=== PATIENT | female | born 1965 | race Caucasian/White ===

== ENCOUNTER → 2016-05-26 | Outpatient (CLI) | payer BC, OTHER ==
[2016-05-26 16:03] LABS: ALANINE AMINOTRANSFERASE 77 U/L (9-52); ALBUMIN 3.9 g/dL (3.5-5.0); ALKALINE PHOSPHATASE 102 U/L (38-126); ANION GAP 11 (5-19); ASPARTATE AMINO TRANSFERASE 56 U/L (14-36); BILIRUBIN,TOTAL 0.7 mg/dL (0.2-1.3); BLOOD UREA NITROGEN 14 mg/dL (7-20); CARBON DIOXIDE 22 mmol/L (22-30); CHLORIDE 105 mmol/L (98-107); CREATININE RESULT 0.67 mg/dL (0.52-1.25); GLUCOSE 113 mg/dL (75-110); POTASSIUM 4.5 mmol/L (3.6-5.0); SODIUM 138.4 mmol/L (137-145); TOTAL PROTEIN 7.5 g/dL (6.3-8.2)
[2016-05-26 16:32] LABS: THYROID STIMULATING HORMONE 0.46 uIU/mL (0.47-4.68)
== END ==
LOC: OD 14:26
PROVIDERS: ATTEND Specialist
DX: Z13.0 Encounter for screening for diseases of the blood and blood-forming organs and certain disorders involving the immune mechanism (principal); Z13.1 Encounter for screening for diabetes mellitus; N81.6 Rectocele
CPT/HCPCS: 36415; 80053; 83036; 84439; 84443

== ENCOUNTER → 2016-06-22 | Outpatient (CLI) | payer BC, OTHER ==
[2016-06-22 12:33] LABS: ALANINE AMINOTRANSFERASE 59 U/L (9-52); ALKALINE PHOSPHATASE 96 U/L (38-126); ANION GAP 15 (5-19); ASPARTATE AMINO TRANSFERASE 47 U/L (14-36); BILIRUBIN,DIRECT 0.3 mg/dL (0.0-0.4); BILIRUBIN,TOTAL 0.6 mg/dL (0.2-1.3); BLOOD UREA NITROGEN 13 mg/dL (7-20); CALCIUM 9.6 mg/dL (8.4-10.2); CARBON DIOXIDE 22 mmol/L (22-30); CHLORIDE 106 mmol/L (98-107); CHOLESTEROL 202.58 mg/dL (0-200); CREATININE RESULT 0.69 mg/dL (0.52-1.25); Direct HDL 52 mg/dL (>40); GLUCOSE 109 mg/dL (75-110); POTASSIUM 4.7 mmol/L (3.6-5.0); SODIUM 143.1 mmol/L (137-145); TOTAL PROTEIN 6.9 g/dL (6.3-8.2); TRIGLYCERIDES 118 mg/dL (<150)
[2016-06-22 12:45] LABS: DIRECT LDL 133 mg/dL (<100)
== END ==
LOC: OD 10:48
PROVIDERS: ATTEND Physician Assistant
DX: R94.5 Abnormal results of liver function studies (principal); E78.5 Hyperlipidemia, unspecified
CPT/HCPCS: 36415; 80053; 80061

== ENCOUNTER → 2016-10-24 | Outpatient (CLI) | payer BC, OTHER ==
[2016-10-24 13:19] LABS: ALANINE AMINOTRANSFERASE 70 U/L (9-52); ALBUMIN 4.3 g/dL (3.5-5.0); ALKALINE PHOSPHATASE 92 U/L (38-126); ANION GAP 13 (5-19); ASPARTATE AMINO TRANSFERASE 49 U/L (14-36); BILIRUBIN,DIRECT 0.5 mg/dL (0.0-0.4); BILIRUBIN,TOTAL 0.8 mg/dL (0.2-1.3); BLOOD UREA NITROGEN 15 mg/dL (7-20); CALCIUM 9.6 mg/dL (8.4-10.2); CARBON DIOXIDE 21 mmol/L (22-30); CHLORIDE 108 mmol/L (98-107); CHOLESTEROL 200.06 mg/dL (0-200); CREATININE RESULT 0.66 mg/dL (0.52-1.25); Direct HDL 54 mg/dL (>40); GLUCOSE 112 mg/dL (75-110); POTASSIUM 4.8 mmol/L (3.6-5.0); TOTAL PROTEIN 7.3 g/dL (6.3-8.2); TRIGLYCERIDES 130 mg/dL (<150)
[2016-10-24 13:30] LABS: DIRECT LDL 129 mg/dL (<100)
== END ==
LOC: LAB 12:44
PROVIDERS: ATTEND Physician Assistant
DX: E78.5 Hyperlipidemia, unspecified (principal)
CPT/HCPCS: 36415; 80053; 80061

== ENCOUNTER → 2017-05-02 | Outpatient (CLI) | payer BC, OTHER ==
[2017-05-02 11:05] LABS: ALANINE AMINOTRANSFERASE 54 U/L (9-52); ALBUMIN 4.3 g/dL (3.5-5.0); ALKALINE PHOSPHATASE 71 U/L (38-126); ANION GAP 10 (5-19); ASPARTATE AMINO TRANSFERASE 41 U/L (14-36); BILIRUBIN,DIRECT 0.4 mg/dL (0.0-0.4); BILIRUBIN,TOTAL 0.5 mg/dL (0.2-1.3); BLOOD UREA NITROGEN 17 mg/dL (7-20); CALCIUM 9.9 mg/dL (8.4-10.2); CARBON DIOXIDE 25 mmol/L (22-30); CHLORIDE 107 mmol/L (98-107); CHOLESTEROL 212.38 mg/dL (0-200); GLUCOSE 100 mg/dL (75-110); POTASSIUM 4.4 mmol/L (3.6-5.0); SODIUM 142.3 mmol/L (137-145); TOTAL PROTEIN 7.1 g/dL (6.3-8.2); TRIGLYCERIDES 138 mg/dL (<150)
[2017-05-02 11:16] LABS: DIRECT LDL 144 mg/dL (<100)
== END ==
LOC: OD 09:38
PROVIDERS: ATTEND Physician Assistant
DX: E78.5 Hyperlipidemia, unspecified (principal)
CPT/HCPCS: 36415; 80053; 80061

== ENCOUNTER → 2017-06-03 | Outpatient (CLI) | payer BC, OTHER ==
[2017-06-03 13:11] LABS: FREE T4 (FREE THYROXINE) 0.84 ng/dL (0.78-2.19)
[2017-06-03 13:25] LABS: THYROID STIMULATING HORMONE 2.2 uIU/mL (0.47-4.68)
[2017-06-04 12:31] LABS: TRIIODOTHYRONINE (T3) 127 ng/dL (71-180)
== END ==
LOC: OD 10:44
PROVIDERS: ATTEND Physician Assistant
DX: E03.9 Hypothyroidism, unspecified (principal); E55.9 Vitamin D deficiency, unspecified
CPT/HCPCS: 36415; 82306; 84439; 84443; 84480

== ENCOUNTER → 2017-08-31 | Outpatient (CLI) | payer BC ==
[2017-08-31 13:16] LABS: FREE T4 (FREE THYROXINE) 0.98 ng/dL (0.78-2.19)
[2017-08-31 13:30] LABS: THYROID STIMULATING HORMONE 2.15 uIU/mL (0.47-4.68)
== END ==
LOC: OD 11:24
PROVIDERS: ATTEND Physician Assistant
DX: E03.9 Hypothyroidism, unspecified (principal); R73.02 Impaired glucose tolerance (oral)
CPT/HCPCS: 36415; 83036; 84439; 84443

== ENCOUNTER → 2018-01-03 | Outpatient (CLI) | payer OTHER ==
[2018-01-03 13:20] LABS: FREE T4 (FREE THYROXINE) 0.81 ng/dL (0.78-2.19)
[2018-01-03 13:33] LABS: THYROID STIMULATING HORMONE 2.2 uIU/mL (0.47-4.68)
== END ==
LOC: OD 11:24
PROVIDERS: ATTEND Physician Assistant
DX: E55.9 Vitamin D deficiency, unspecified (principal); E03.9 Hypothyroidism, unspecified
CPT/HCPCS: 36415; 82306; 84439; 84443; 84480

== ENCOUNTER → 2018-04-22 | Outpatient (CLI) | payer OTHER ==
[2018-04-22 11:31] LABS: ALANINE AMINOTRANSFERASE 72 U/L (9-52); ALBUMIN 4.4 g/dL (3.5-5.0); ALKALINE PHOSPHATASE 82 U/L (38-126); ANION GAP 9 (5-19); ASPARTATE AMINO TRANSFERASE 60 U/L (14-36); BILIRUBIN,DIRECT 0.2 mg/dL (0.0-0.4); BILIRUBIN,TOTAL 0.6 mg/dL (0.2-1.3); BLOOD UREA NITROGEN 15 mg/dL (7-20); CALCIUM 9.5 mg/dL (8.4-10.2); CARBON DIOXIDE 22 mmol/L (22-30); CHLORIDE 110 mmol/L (98-107); CHOLESTEROL 205.84 mg/dL (0-200); GLUCOSE 106 mg/dL (75-110); POTASSIUM 4.1 mmol/L (3.6-5.0); SODIUM 140.5 mmol/L (137-145); TRIGLYCERIDES 107 mg/dL (<150)
[2018-04-22 11:42] LABS: DIRECT LDL 130 mg/dL (<100)
[2018-04-22 11:45] LABS: FREE T4 (FREE THYROXINE) 0.64 ng/dL (0.78-2.19)
[2018-04-22 11:59] LABS: THYROID STIMULATING HORMONE 3.15 uIU/mL (0.47-4.68)
== END ==
LOC: OD 10:08
PROVIDERS: ATTEND Physician Assistant
DX: E03.9 Hypothyroidism, unspecified (principal); E78.5 Hyperlipidemia, unspecified
CPT/HCPCS: 36415; 80053; 80061; 84439; 84443; 84480

== ENCOUNTER → 2018-10-16 | Outpatient (CLI) | payer OTHER ==
[2018-10-16 18:22] LABS: FREE T4 (FREE THYROXINE) 0.7 ng/dL (0.78-2.19)
[2018-10-16 18:36] LABS: THYROID STIMULATING HORMONE 0.09 uIU/mL (0.47-4.68)
== END ==
LOC: OD 16:46
PROVIDERS: ATTEND Physician Assistant
DX: E03.9 Hypothyroidism, unspecified (principal)
CPT/HCPCS: 36415; 84439; 84443; 84480

== ENCOUNTER → 2018-12-21 | Outpatient (CLI) | payer OTHER ==
[2018-12-21 18:08] LABS: FREE T4 (FREE THYROXINE) 0.55 ng/dL (0.78-2.19)
[2018-12-21 18:22] LABS: THYROID STIMULATING HORMONE 0.6 uIU/mL (0.47-4.68)
== END ==
LOC: OD 16:08
PROVIDERS: ATTEND Physician Assistant
DX: E03.9 Hypothyroidism, unspecified (principal)
CPT/HCPCS: 36415; 84439; 84443

== ENCOUNTER → 2019-03-10 | Outpatient (CLI) | payer OTHER ==
[2019-03-10 11:42] LABS: ABSOLUTE BASOPHILS # (AUTO) 0.1 10^3/uL (0.0-0.2); ABSOLUTE EOSINOPHILS # (AUTO) 0.5 10^3/uL (0.0-0.6); ABSOLUTE LYMPHOCYTES (AUTO) 2.8 10^3/uL (0.5-4.7); ABSOLUTE MONOCYTES (AUTO) 0.8 10^3/uL (0.1-1.4); ABSOLUTE NEUT (AUTO) 5.4 10^3/uL (1.7-8.2); BASOPHILS % (AUTO) 0.9 % (0-2); HEMATOCRIT 47.5 % (36.0-47.0); HEMOGLOBIN 15.7 g/dL (12.0-15.5); LYMPHOCYTES % (AUTO) 29.5 % (13-45); MEAN CORPUSCULAR HEMOGLOBIN 26.9 pg (27.0-33.4); MEAN CORPUSCULAR HGB CONC 32.9 g/dL (32.0-36.0); MEAN CORPUSCULAR VOLUME 82 fl (80-97); MONOCYTES % (AUTO) 7.9 % (3-13); PLATELET COUNT 249 10^3/uL (150-450); RED BLOOD COUNT 5.82 10^6/uL (3.72-5.28); RED CELL DISTRIBUTION WIDTH 14.6 % (11.5-14.0); SEGMENTED NEUTROPHILS % (AUTO) 56.7 % (42-78); TOTAL CELLS COUNTED % (AUTO) 100 %; WHITE BLOOD COUNT 9.5 10^3/uL (4.0-10.5)
[2019-03-10 12:24] LABS: ALBUMIN 4.5 g/dL (3.5-5.0); ALKALINE PHOSPHATASE 81 U/L (38-126); ANION GAP 12 (5-19); ASPARTATE AMINO TRANSFERASE 96 U/L (14-36); BILIRUBIN,DIRECT 0.2 mg/dL (0.0-0.4); BILIRUBIN,TOTAL 0.7 mg/dL (0.2-1.3); BLOOD UREA NITROGEN 17 mg/dL (7-20); CARBON DIOXIDE 23 mmol/L (22-30); CHLORIDE 107 mmol/L (98-107); CHOLESTEROL 237.12 mg/dL (0-200); GLUCOSE 103 mg/dL (75-110); POTASSIUM 4.5 mmol/L (3.6-5.0); TOTAL PROTEIN 7.6 g/dL (6.3-8.2); TRIGLYCERIDES 136 mg/dL (<150)
[2019-03-10 12:34] LABS: FREE T4 (FREE THYROXINE) 0.59 ng/dL (0.78-2.19)
[2019-03-10 12:35] LABS: DIRECT LDL 151 mg/dL (<100)
[2019-03-10 12:43] LABS: BLOOD UREA NITROGEN 17 mg/dL (7-20); CHLORIDE 107 mmol/L (98-107); GLUCOSE 103 mg/dL (75-110); POTASSIUM 4.5 mmol/L (3.6-5.0)
[2019-03-10 12:44] LABS: ALBUMIN 4.5 g/dL (3.5-5.0); ALKALINE PHOSPHATASE 81 U/L (38-126); ANION GAP 12 (5-19); ASPARTATE AMINO TRANSFERASE 96 U/L (14-36); BILIRUBIN,DIRECT 0.2 mg/dL (0.0-0.4); BILIRUBIN,TOTAL 0.7 mg/dL (0.2-1.3); CARBON DIOXIDE 23 mmol/L (22-30)
[2019-03-10 12:45] LABS: TOTAL PROTEIN 7.6 g/dL (6.3-8.2)
[2019-03-10 12:48] LABS: THYROID STIMULATING HORMONE 0.54 uIU/mL (0.47-4.68)
[2019-03-12 12:36] LABS: HEPATITS B SURFACE ANTIGEN Negative (Negative)
[2019-03-12 14:25] LABS: HEPATITIS C VIRUS ANTIBODY <0.1 s/co ratio (0.0-0.9)
== END ==
LOC: OD 09:45
PROVIDERS: ATTEND Physician Assistant
DX: E55.9 Vitamin D deficiency, unspecified (principal); E78.5 Hyperlipidemia, unspecified; E03.9 Hypothyroidism, unspecified; R73.02 Impaired glucose tolerance (oral); K76.89 Other specified diseases of liver; R94.5 Abnormal results of liver function studies; Z79.899 Other long term (current) drug therapy
CPT/HCPCS: 36415; 80053; 80061; 80074; 82306; 83036; 84439; 84443; 84480; 85025; 87070

== ENCOUNTER 2019-05-04 17:00 | Emergency (ER) | payer OTHER ==
[2019-05-04] MEDS ORDERED: KETOROLAC TROMETHAMINE 60 MG/2 ML SDV IM ONE (17:41)
[2019-05-04] MEDS ORDERED: ONDANSETRON 4 MG TAB.RAPDIS PO ONE (17:41)
--- NOTE | 2019-05-04 17:47 | ER Document Report ---
ED Medical Screen (RME) - General Chief Complaint: Flank Pain Stated Complaint: URINARY PAIN, FLANK PAIN Time Seen by Provider: 05/04/19 17:32 Primary Care Provider: ALYSON PATE PA-C [Primary Care Provider] - Follow up as needed TRAVEL OUTSIDE OF THE [place] IN LAST 30 DAYS: No - HPI Notes: 05/04/19 17:46 53-year-old female with history of kidney stones to the emergency department with complaints of left flank pain that radiates down her abdomen and groin for the past several hours. She states that she has a history of kidney stones and this feels similar. She states that she had an episode like this last week but she got little bit better. She states in the last 2 hours of working today though pain came on full force with nausea. She has not vomited but she has be en very close to it. She states that she feels like her bladder hurts. She denies any dysuria or hematuria. She does not currently have a urologist. I performed a brief medical screening exam on the patient determined that she will need further evaluation by me inside provider. I placed initial orders to help expedite her care. - Related Data Allergies/Adverse Reactions: cephalexin monohydrate [From Keflex] Allergy (Verified 10/15/11 19:52) Past Medical History - Social History Frequency of alcohol use: Rare Drug Abuse: None Neurological Medical History: Reports: Hx Migraine Renal/ Medical History: Reports: Hx Kidney Stones Musculoskeltal Medical History: Reports Hx Musculoskeletal Deformity, Reports Hx Musculoskeletal Trauma Past Surgical History: Reports: Hx Hysterectomy, Hx Kidney (Renal Surgery) - stone removal - Immunizations Hx Diphtheria, Pertussis, Tetanus Vaccination: Yes Physical Exam - Vital signs Vitals: Temp Pulse Resp BP Pulse Ox 97.9 F 86 18 145/77 H 96 05/04/19 17:16 05/04/19 17:16 05/04/19 17:16 05/04/19 17:16 05/04/19 17:16 Course - Vital Signs Vital signs: Temp Pulse Resp BP Pulse Ox 97.9 F 86 18 145/77 H 96 05/04/19 17:16 05/04/19 17:16 05/04/19 17:16 05/04/19 17:16 05/04/19 17:16 Doctor's Discharge - Discharge Referrals: ALYSON PATE PA-C [Primary Care Provider] - Follow up as needed
--- NOTE | 2019-05-04 18:24 | RADIOLOGY REPORT (SQ) ---
EXAM DESCRIPTION: CT ABD/PELVIS NO ORAL OR IV COMPLETED DATE/TIME: 05/04/2019 6:05 pm REASON FOR STUDY: kidney stone eval COMPARISON: None. TECHNIQUE: CT scan of the abdomen and pelvis performed without intravenous or oral contrast. Images reviewed with lung, soft tissue, and bone windows. Reconstructed coronal and sagittal MPR images revi ewed. All images stored on PACS. All CT scanners at this facility use dose modulation, iterative reconstruction, and/or weight based d osing when appropriate to reduce radiation dose to as low as reasonably achievable (ALARA). [facility]: Dose Right [facility]: CareDose [facility]: Dose Right [facility]: Teradose 4D [facility]: Smart Clearwire RADIATION DOSE: CT Rad equipment meets quality standard of care and radiation dose reduction techniq ues were employed. CTDIvol: 19.2 mGy. DLP: 1026 mGy-cm.mGy. LIMITATIONS: None. FINDINGS: LOWER CHEST: No significant findings. No nodules or infiltrates. NON-CONTRASTED LIVER, SPLEEN, ADRENALS: Evaluation limited by lack of IV contrast. No identified sign ificant masses. PANCREAS: No masses. No peripancreatic inflammatory changes. GALLBLADDER: No identified stones by CT criteria. No inflammatory changes to suggest cholecystitis. RIGHT KIDNEY AND URETER: No suspicious masses. Assessment limited by lack of IV contrast. No signif icant calcifications. No hydronephrosis or hydroureter. LEFT KIDNEY AND URETER: No suspicious masses. Assessment limited by lack of IV contrast. Peripheral nephrolithiasis. 6 mm calculus at the UV junction. Mild hydronephrosis and hydroureter. AORTA AND RETROPERITONEUM: No aneurysm. No retroperitoneal masses or adenopathy. BOWEL AND PERITONEAL CAVITY: No obvious masses or inflammatory changes. No free fluid. Diverticulosi s. APPENDIX: Normal. PELVIS, BLADDER, AND ABDOMINAL WALL:No abnormal masses. No free fluid. Bladder normal. BONES: No significant findings. OTHER: No other significant finding. IMPRESSION: Left obstructive uropathy secondary to a 6 mm calcification at the UV junction. COMMENT: Quality ID # [id number]: Final reports with documentation of one or more dose reduction techniques (e.g., Automated exposure control, adjustment of the mA and/or kV according to patient size, use of iterative reconstruction technique) TECHNICAL DOCUMENTATION: JOB ID: [id number]- All Rights Reserved Reading location - IP/workstation name: [email or web address]
[2019-05-04 19:15] LABS: ABSOLUTE BASOPHILS # (AUTO) 0.1 10^3/uL (0.0-0.2); ABSOLUTE EOSINOPHILS # (AUTO) 0.4 10^3/uL (0.0-0.6); ABSOLUTE LYMPHOCYTES (AUTO) 3.2 10^3/uL (0.5-4.7); ABSOLUTE MONOCYTES (AUTO) 1.2 10^3/uL (0.1-1.4); ABSOLUTE NEUT (AUTO) 9.5 10^3/uL (1.7-8.2); BASOPHILS % (AUTO) 0.9 % (0-2); HEMOGLOBIN 15.5 g/dL (12.0-15.5); LYMPHOCYTES % (AUTO) 22.3 % (13-45); MEAN CORPUSCULAR HEMOGLOBIN 27.1 pg (27.0-33.4); MEAN CORPUSCULAR HGB CONC 32.9 g/dL (32.0-36.0); MEAN CORPUSCULAR VOLUME 82 fl (80-97); MONOCYTES % (AUTO) 8.2 % (3-13); PLATELET COUNT 294 10^3/uL (150-450); RED BLOOD COUNT 5.72 10^6/uL (3.72-5.28); RED CELL DISTRIBUTION WIDTH 14.3 % (11.5-14.0); SEGMENTED NEUTROPHILS % (AUTO) 65.6 % (42-78); TOTAL CELLS COUNTED % (AUTO) 100 %; WHITE BLOOD COUNT 14.5 10^3/uL (4.0-10.5)
[2019-05-04] MEDS ORDERED: KETOROLAC TROMETHAMINE INJ/PF 30 MG/1 ML SDV IV ONE (19:33)
[2019-05-04] MEDS ORDERED: MORPHINE SULFATE 10 MG/ML INJ IV ONE ×2 (19:34→21:50)
[2019-05-04 19:36] LABS: ALBUMIN 4.5 g/dL (3.5-5.0); ALKALINE PHOSPHATASE 81 U/L (38-126); ANION GAP 14 (5-19); APPEARANCE,URINE CLOUDY; ASPARTATE AMINO TRANSFERASE 65 U/L (14-36); BILIRUBIN,DIRECT 0.4 mg/dL (0.0-0.4); BILIRUBIN,TOTAL 0.7 mg/dL (0.2-1.3); BILIRUBIN,URINE NEGATIVE (NEGATIVE); BLOOD UREA NITROGEN 24 mg/dL (7-20); CALCIUM 10.2 mg/dL (8.4-10.2); CARBON DIOXIDE 24 mmol/L (22-30); CHLORIDE 101 mmol/L (98-107); COLOR,URINE YELLOW; GLUCOSE 88 mg/dL (75-110); GLUCOSE, URINE NEGATIVE (NEGATIVE); KETONES,URINE NEGATIVE (NEGATIVE); POTASSIUM 4.4 mmol/L (3.6-5.0); PROTEIN,URINE NEGATIVE (NEGATIVE); TOTAL PROTEIN 7.7 g/dL (6.3-8.2); URINE SPECIFIC GRAVITY 1.016; UROBILINOGEN,URINE NEGATIVE mg/dL (<2.0)
[2019-05-04] MEDS ORDERED: TAMSULOSIN HCL 0.4 MG CAP.SR.24H PO ONE (21:50)
[2019-05-04] MEDS ORDERED: NORMAL SALINE 1000 ML 1,000 ML IV ONE (21:50)
--- NOTE | 2019-05-04 23:47 | ER Document Report ---
ED General - General Chief Complaint: Flank Pain Stated Complaint: URINARY PAIN, FLANK PAIN Time Seen by Provider: 05/04/19 17:32 Primary Care Provider: LAKSHMI HDZ MD [CATA DOE] - Follow up in 1 week ALYSON PATE PA-C [NO LOCAL MD] - Follow up in 3-5 days NICHOLAS MONTE MD [NO LOCAL MD] - Follow up in 1 week Notes: 53-year-old female with history of kidney stones presents with left flank pain that started today with radiation to her left groin. Patient states it feels similar to her kidney stone pain in the past. Patient has had associated nausea and "pain in her bladder." Patient denies any fevers, vomiting, diarrhea, constipation, chest pain, shortness of breath, dysuria. TRAVEL OUTSIDE OF THE [place] IN LAST 30 DAYS: No - Related Data Allergies/Adverse Reactions: cephalexin monohydrate [From Keflex] Allergy (Verified 10/15/11 19:52) inderjit Allergy (Verified 05/04/19 20:21) papaya Allergy (Verified 05/04/19 20:21) Past Medical History - Social History Smoking Status: Never Smoker Frequency of alcohol use: Rare Drug Abuse: None Family History: Reviewed & Not Pertinent Patient has suicidal ideation: No Patient has homicidal ideation: No - Past Medical History Cardiac Medical History: Reports: Hx Hypercholesterolemia Pulmonary Medical History: Reports: Hx Asthma - allergies Neurological Medical History: Reports: Hx Migraine Renal/ Medical History: Reports: Hx Kidney Stones Musculoskeletal Medical History: Reports Hx Musculoskeletal Deformity, Reports Hx Musculoskeletal Trauma Past Surgical History: Reports: Hx Gynecologic Surgery, Hx Hysterectomy, Hx K idney (Renal Surgery) - stone removal, Hx Oral Surgery - wisdom teeth, Hx Tubal Ligation - Immunizations Hx Diphtheria, Pertussis, Tetanus Vaccination: Yes Review of Systems - Review of Systems Notes: Constitutional: Negative for fever. HENT: Negative for sore throat. Eyes: Negative for visual changes. Cardiovascular: Negative for chest pain. Respiratory: Negative for shortness of breath. Gastrointestinal: Positive for flank pain and nausea. Negative for abdominal pain, vomiting or diarrhea. Genitourinary: Negative for dysuria. Musculoskeletal: Negative for back pain. Skin: Negative for rash. Neurological: Negative for headaches, weakness or numbness. 10 point ROS negative except as marked above and in HPI. Physical Exam - Vital signs Vitals: Temp Pulse Resp BP Pulse Ox 97.9 F 86 18 145/77 H 96 05/04/19 17:16 05/04/19 17:16 05/04/19 17:16 05/04/19 17:16 05/04/19 17:16 - Notes Notes: GENERAL: Well-appearing, well-nourished and in no acute distress. HEAD: Atraumatic, normocephalic. EYES: Extraocular movements intact, sclera anicteric, conjunctiva are normal. NECK: Normal range of motion, supple without lymphadenopathy or JVD. ABDOMEN: Soft, nontender. No guarding, no rebound. No masses appreciated. No CVA tenderness. EXTREMITIES: Normal range of motion, no pitting or edema. No clubbing or cyanosis. NEUROLOGICAL: Cranial nerves II through XII grossly intact. Normal speech, normal gait. PSYCH: Normal mood, normal affect. SKIN: Warm, Dry, normal turgor, no rashes or lesions noted. Course - Re-evaluation Re-evalutation: 05/05/19 nontoxic, well-appearing 53-year-old female with history of kidney stones presents with left flank pain and nausea. Patient has a history of kidney stones and states this feels similar. Patient is afebrile. Non- tachycardic. Patient's white count is 14.5. Urine shows trace leukocytes with 19 WBCs and 73 RBCs with negative nitrite. CT scan shows a left stone approximately 6 mm at UVJ. Discussed with attending, Dr. Chaidez. Discussed results with pt and given report. Pt has elected to try outpatient management of ureteral stone. Strict return precautions given with pain control with sedation control. Pt voices understanding and agrees with plan of care. - Vital Signs Vital signs: Temp Pulse Resp BP Pulse Ox 97.8 F 69 18 111/59 L 95 05/05/19 00:19 05/05/19 00:19 05/04/19 22:09 05/05/19 00:19 05/05/19 00:19 - Laboratory Result Diagrams: 05/04/19 18:18 05/04/19 18:18 Laboratory results interpreted by me: 05/04/19 05/04/19 05/04/19 18:18 18:18 18:18 WBC 14.5 H RBC 5.72 H RDW 14.3 H Absolute Neuts (auto) 9.5 H BUN 24 H Est GFR (MDRD) Non-Af 55 L AST 65 H Urine Blood SMALL H Leukocyte Esterase Rfl TRACE H Urine Ascorbic Acid 40 H Discharge - Discharge Clinical Impression: Ureteral calculus, left Condition: Stable Disposition: HOME, SELF-CARE Instructions: Kidney Stone ([facility]) Additional Instructions: Please take medications as prescribed. Please do not drink or drive while taking [place] as it may make you drowsy. Please follow-up with urologist listed in 3 to 5 days. Please follow-up with your primary care doctor in 2 to 3 days. Return immediately to ER if you start having any worsening symptoms, including vomiting not controlled by medication, fever, inability to urinate, increased pain, increased pain or blood, abdominal pain, chest pain, shortness of breath, or any other symptoms that are concerning to you. Prescriptions: Ondansetron [Zofran Odt 4 mg Tablet] 4 mg PO Q4HP PRN #30 tab.rapdis PRN Reason: Hydrocodone/Acetaminophen [[place] 5-325 mg Tablet] 1 tab PO Q6HP PRN #15 tablet PRN Reason: Ketorolac Tromethamine [Toradol 10 mg Tablet] 10 mg PO Q6HP PRN #24 tablet PRN Reason: Tamsulosin HCl [Flomax 0.4 mg Cap.sr] 0.4 mg PO DAILY #10 cap.sr.24h Referrals: ALYSON PATE PA-C [NO LOCAL MD] - Follow up in 3-5 days LAKSHMI HDZ MD [CATA DOE] - Follow up in 1 week NICHOLAS MONTE MD [NO LOCAL MD] - Follow up in 1 week
[2019-05-04] MEDS ORDERED: HYDROCODONE/ACETAMINOPHEN 5-325 MG (6 TAB/ER DISP) PO PRN (23:52)
[2019-05-04] MEDS ORDERED: ONDANSETRON ODT 4 MG TAB (6 TAB/ER DISP) PO PRN (23:52)
[2019-05-05 00:21] VITALS: BP 111/59
== END 2019-05-05 00:23 | disposition home or self-care (01) ==
LOC: ER 17:00
DX: N13.2 Hydronephrosis with renal and ureteral calculous obstruction (principal); R11.0 Nausea; J45.909 Unspecified asthma, uncomplicated; Z88.1 Allergy status to other antibiotic agents; Z91.018 Allergy to other foods
CPT/HCPCS: 96376; 99284; 96361; 96374; 96375; 36415; 87086; 85025; 80053; 81001; 74176; S0119; J1885; J2270; J7030

== ENCOUNTER → 2019-06-12 | Outpatient (CLI) | payer OTHER ==
[2019-06-12 08:23] LABS: ALBUMIN 4.2 g/dL (3.5-5.0); ALKALINE PHOSPHATASE 76 U/L (38-126); ANION GAP 11 (5-19); ASPARTATE AMINO TRANSFERASE 66 U/L (14-36); BILIRUBIN,TOTAL 0.7 mg/dL (0.2-1.3); BLOOD UREA NITROGEN 17 mg/dL (7-20); CALCIUM 9.7 mg/dL (8.4-10.2); CARBON DIOXIDE 22 mmol/L (22-30); CHLORIDE 107 mmol/L (98-107); CHOLESTEROL 209.51 mg/dL (0-200); GLUCOSE 120 mg/dL (75-110); POTASSIUM 4.2 mmol/L (3.6-5.0); TOTAL PROTEIN 7.3 g/dL (6.3-8.2); TRIGLYCERIDES 156 mg/dL (<150)
[2019-06-12 08:34] LABS: DIRECT LDL 138 mg/dL (<100)
[2019-06-12 08:39] LABS: VLDL CHOLESTEROL 31.2 mg/dL (10-31)
== END ==
LOC: OD 07:24
PROVIDERS: ATTEND Physician Assistant
DX: E78.5 Hyperlipidemia, unspecified (principal)
CPT/HCPCS: 36415; 80053; 80061

== ENCOUNTER → 2019-07-27 | Outpatient (CLI) | payer OTHER ==
[2019-07-27 11:48] LABS: ABSOLUTE BASOPHILS # (AUTO) 0.1 10^3/uL (0.0-0.2); ABSOLUTE EOSINOPHILS # (AUTO) 0.5 10^3/uL (0.0-0.6); ABSOLUTE LYMPHOCYTES (AUTO) 2.9 10^3/uL (0.5-4.7); ABSOLUTE MONOCYTES (AUTO) 0.7 10^3/uL (0.1-1.4); ABSOLUTE NEUT (AUTO) 5.4 10^3/uL (1.7-8.2); BASOPHILS % (AUTO) 0.9 % (0-2); HEMATOCRIT 46.3 % (36.0-47.0); HEMOGLOBIN 15.4 g/dL (12.0-15.5); LYMPHOCYTES % (AUTO) 30.4 % (13-45); MEAN CORPUSCULAR HEMOGLOBIN 27.3 pg (27.0-33.4); MEAN CORPUSCULAR HGB CONC 33.2 g/dL (32.0-36.0); MEAN CORPUSCULAR VOLUME 82 fl (80-97); MONOCYTES % (AUTO) 7.2 % (3-13); PLATELET COUNT 247 10^3/uL (150-450); RED BLOOD COUNT 5.64 10^6/uL (3.72-5.28); RED CELL DISTRIBUTION WIDTH 14.8 % (11.5-14.0); SEGMENTED NEUTROPHILS % (AUTO) 56.5 % (42-78); TOTAL CELLS COUNTED % (AUTO) 100 %; WHITE BLOOD COUNT 9.6 10^3/uL (4.0-10.5)
[2019-07-27 12:11] LABS: ALBUMIN 4.6 g/dL (3.5-5.0); ALKALINE PHOSPHATASE 75 U/L (38-126); ASPARTATE AMINO TRANSFERASE 89 U/L (14-36); BILIRUBIN,TOTAL 0.7 mg/dL (0.2-1.3); TOTAL PROTEIN 7.5 g/dL (6.3-8.2)
[2019-07-29 19:36] LABS: IMMUNOGLOBULIN A 413 mg/dL (87-352); IMMUNOGLOBULIN M 72 mg/dL (26-217)
[2019-07-30 07:12] LABS: IMMUNOGLOBULIN E 779 IU/mL (6-495); IMMUNOGLOBULIN G 902 mg/dL (586-1602)
[2019-07-30 16:22] LABS: ACTIN (SMOOTH MUSCLE) ANTIBODY 9 Units (0-19); MITOCHONDRIAL (M2) ANTIBODY <20.0 Units (0.0-20.0)
== END ==
LOC: OD 10:15
PROVIDERS: ATTEND Physician Assistant Medical
DX: K76.0 Fatty (change of) liver, not elsewhere classified (principal); R74.0 Nonspecific elevation of levels of transaminase and lactic acid dehydrogenase [LDH]; R13.10 Dysphagia, unspecified
CPT/HCPCS: 36415; 80076; 82390; 82728; 82784; 82785; 83540; 83550; 85025; 86038; 86235; 86256

== ENCOUNTER → 2019-10-16 | Outpatient (CLI) | payer OTHER ==
--- NOTE | 2019-10-16 16:05 | RADIOLOGY REPORT (SQ) ---
EXAM DESCRIPTION: KUB/ABDOMEN (SINGLE VIEW) IMAGES COMPLETED DATE/TIME: 10/16/2019 3:32 pm REASON FOR STUDY: N20.0 CALCULUS OF KIDNEY, N21.0 CALCULUS OF BLADDER N20.0 CALCULUS OF KIDNEY COMPARISON: None. NUMBER OF VIEWS: One view. TECHNIQUE: Supine radiographic image of the abdomen acquired. LIMITATIONS: None. FINDINGS: BOWEL GAS PATTERN: Normal bowel gas pattern. No dilated loops. CALCIFICATIONS: No suspicious calcifications. SOFT TISSUES: No gross mass or suggestion of organomegaly. HARDWARE: None in the abdomen. BONES: No acute fracture. No worrisome bone lesions. OTHER: No other significant finding. IMPRESSION: NO RADIOGRAPHIC EVIDENCE FOR ACUTE ABDOMINAL DISEASE. TECHNICAL DOCUMENTATION: JOB ID: [id number] 2010 [employer]- All Rights Reserved Reading location - IP/workstation name: [email or web address]
--- NOTE | 2019-10-16 16:06 | RADIOLOGY REPORT (SQ) ---
EXAM DESCRIPTION: U/S RETROPERITON (RENAL/AORTA) IMAGES COMPLETED DATE/TIME: 10/16/2019 3:46 pm REASON FOR STUDY: N20.0 CALCULUS OF KIDNEY N20.0 CALCULUS OF KIDNEY COMPARISON: None. TECHNIQUE: Dynamic and static grayscale images acquired of the kidneys and bladder and recorded on P ACS. Additional selected color Doppler and spectral images recorded. LIMITATIONS: None. FINDINGS: RIGHT KIDNEY: Normal size. Normal echogenicity. No solid or suspicious masses. No hydronep hrosis. No calcifications. LEFT KIDNEY: Normal size. Normal echogenicity. No solid or suspicious masses. No hydronephrosis. No calcifications. BLADDER: No masses. OTHER FINDINGS: No other significant finding. IMPRESSION: NORMAL RENAL AND BLADDER ULTRASOUND. TECHNICAL DOCUMENTATION: JOB ID: [id number] 2010 [employer]- All Rights Reserved Reading location - IP/workstation name: [email or web address]
== END ==
LOC: RAD 15:22
PROVIDERS: ATTEND Urology
DX: N20.0 Calculus of kidney (principal); N20.1 Calculus of ureter; N21.0 Calculus in bladder
CPT/HCPCS: 74018; 76770

== ENCOUNTER → 2019-10-16 | Outpatient (CLI) | payer OTHER ==
[2019-10-16 17:33] LABS: FREE T3 2.75 pg/mL (2.77-5.27); FREE T4 (FREE THYROXINE) 0.71 ng/dL (0.78-2.19)
[2019-10-16 17:47] LABS: THYROID STIMULATING HORMONE 0.28 uIU/mL (0.47-4.68)
== END ==
LOC: OD 16:10
PROVIDERS: ATTEND Physician Assistant
DX: E03.9 Hypothyroidism, unspecified (principal)
CPT/HCPCS: 36415; 84439; 84443; 84481

== ENCOUNTER → 2019-10-24 | Outpatient (CLI) | payer OTHER ==
--- NOTE | 2019-10-24 15:41 | WOMENS IMAGING REPORT ---
EXAM DESCRIPTION: 3D SCREENING MAMMO BILAT IMAGES COMPLETED DATE/TIME: 10/24/2019 3:29 pm REASON FOR STUDY: Z12.31 ENCNTR SCREEN MAMMOGRAM FOR MALIGNANT NEOPLASM OF BREAST I27.20 PULMONARY HYPERTENSION, UNSPECIFIED Z12.31 ENCNTR SCREEN MAMMOGRAM FOR MALIGNANT NEOPLASM OF RORY COMPARISON: 2013, 2016, 2017 EXAM PARAMETERS: Views: Standard craniocaudal and mediolateral oblique views of each breast recorded using digital acquisition and breast tomosynthesis. Read with the assistance of CAD. .[facility] - [employer] Version 9.2 LIMITATIONS: None. FINDINGS: No suspicious masses, suspicious calcifications or architectural distortion. No areas of c oncern. IMPRESSION: NEGATIVE MAMMOGRAM. BIRADS 1. BREAST DENSITY: b. There are scattered areas of fibroglandular density. BIRAD: ASSESSMENT: 1 NEGATIVE RECOMMENDATION: ROUTINE SCREENING COMMENT: The patient has been notified of the results by letter per MQSA requirements. Additional no tification policies are in place for contacting patient with suspicious or incomplete findings. Quality ID #[id number]: The [employer] recommends an annual screening mammogram for women aged 40 years or over. This facility utilizes a reminder system to ensure that all patients receive reminder letters, and/or direct phone calls for appointments. This includes reminders for routine scr eening mammograms, diagnostic mammograms, or other Breast Imaging Interventions when appropriate. Th is patient will be placed in the appropriate reminder system. TECHNICAL DOCUMENTATION: FINDING NUMBER: (1) ASSESSMENT: (1) JOB ID: [id number] 2010 [email or web address]- All Rights Reserved Reading location - IP/workstation name: [email or web address]
--- NOTE | 2019-10-24 19:43 | XCELERA REPORT ---
[address] [address] Transthoracic Echocardiogram Report Name: YURI JOHNSON Age: 54 yrs Gender: Female : 1965 Patient Status: Outpatient Patient Location: Study Date: 10/24/2019 02:03 PM Height: 65 in Weight: 245 lb BSA: 2.2 m2 Procedure: A complete two-dimensional transthoracic echocardiogram was performed (2D, M-mode, spectral and color flow Doppler). The study was technically adequate with some images being suboptimal in quality. Reason For Study: PULMONARY HTN Ordering Physician: ZEFERINO LEACH Performed By: Julia Snowden Interpretation Summary LEFT VENTRICLE: LV Systolic function: LVEF is felt to be within normal limits. Best estimate is approximately LVEF is 60 to 65%. LV Diastolic Function: Grade II diastolic dysfunction noted. Wall motion: No definite regional wall motion abnormalities are noted. Left ventricular chamber size: is within normal limit. Left ventricular wall thickness: is increased indicative of Mild LVH. RIGHT VENTRICLE: RV systolic function: is felt to be within normal limit. Right Ventricle Size: is within normal limits. LEFT ATRIUM size: is mildly dilated. RIGHT ATRIUM size: is within normal limit. INTER ATRIAL SEPTUM: No definite atrial septal defect noted however a small PFO could be missed. AORTIC ROOT: seems to be within normal limits. ASCENDING AORTA: is not well visualized. INFERIOR VENA CAVA: was not well visualized. VALVES: MITRAL VALVE: Leaflets are mildly thickened. Mobility seems to be within normal limits. Mitral Regurgitation: Trace mitral regurgitation is noted. Mitral Stenosis: No mitral stenosis noted. Mitral valve prolapse: none noted. AORTIC VALVE: seems to be trileaflet with mild thickening but adequate excursion. Aortic stenosis: No aortic stenosis noted. Aortic regurgitation: No aortic incompetence noted. TRICUSPID VALVE: mobility and structures within normal limit. Tricuspid stenosis: no tricuspid stenosis noted. Tricuspid regurgitation: Trace tricuspid regurgitation noted. Estimated RVSP: cannot be accurately commented upon but possibly at upper limit of normal. PULMONARY VALVE: was not well visualized but no significant abnormalities suspected. Pulmonary stenosis: no pulmonary stenosis noted. Pulmonary regurgitation: no significant pulmonary regurgitation noted. MASSES AND THROMBUS: No definite intracardiac thrombus or masses are noted. PERICARDIUM: No pericardial effusion was noted. IMPRESSION: 1. Normal LVEF. 2. Mild LVH noted. 3. Grade II [mild] Diastolic Dysfunction noted. 4. No significant valvular stenosis or regurgitation noted. 5. LA is mildly dilated. MMode/2D Measurements & Calculations RVDd: 2.3 cm LVIDd: 4.3 cm FS: 37.7 % Ao root diam: 3.0 cm IVSd: 1.2 cm LVIDs: 2.7 cm EDV(Teich): 84.5 ml Ao root area: 6.9 cm2 LVPWd: 1.2 cm ESV(Teich): 26.9 ml EF(Teich): 68.1 % Doppler Measurements & Calculations MV E max jeffery: MV dec slope: Ao V2 max: LV V1 max P.3 cm/sec 389.9 cm/sec2 189.5 cm/sec 9.6 mmHg MV A max jeffery: MV dec time: 0.24 secAo max PG: LV V1 max: 106.9 cm/sec 14.4 mmHg 154.5 cm/sec MV E/A: 0.87 PA V2 max: TR max jeffery: 123.4 cm/sec 252.4 cm/sec PA max P.1 mmHg TR max P.6 mmHg : ZEFERINO LEACH Shyamal
== END ==
LOC: SP 14:00
PROVIDERS: ATTEND Physician Assistant
DX: Z12.31 Encounter for screening mammogram for malignant neoplasm of breast (principal); I27.20 Pulmonary hypertension, unspecified
CPT/HCPCS: 77063; 77067; 93306

== ENCOUNTER → 2019-12-01 | Outpatient (CLI) | payer OTHER ==
[2019-12-01 11:53] LABS: ALBUMIN 4.3 g/dL (3.5-5.0); ALKALINE PHOSPHATASE 84 U/L (38-126); ANION GAP 7 (5-19); ASPARTATE AMINO TRANSFERASE 52 U/L (14-36); BILIRUBIN,DIRECT 0.4 mg/dL (0.0-0.4); BILIRUBIN,TOTAL 0.7 mg/dL (0.2-1.3); BLOOD UREA NITROGEN 14 mg/dL (7-20); CALCIUM 9.6 mg/dL (8.4-10.2); CARBON DIOXIDE 26 mmol/L (22-30); CHLORIDE 109 mmol/L (98-107); CHOLESTEROL 160.63 mg/dL (0-200); GLUCOSE 95 mg/dL (75-110); POTASSIUM 4.2 mmol/L (3.6-5.0); TOTAL PROTEIN 7.3 g/dL (6.3-8.2); TRIGLYCERIDES 109 mg/dL (<150)
[2019-12-01 12:05] LABS: DIRECT LDL 96 mg/dL (<100)
[2019-12-01 12:11] LABS: FREE T4 (FREE THYROXINE) 0.62 ng/dL (0.78-2.19)
[2019-12-01 12:26] LABS: THYROID STIMULATING HORMONE < 0.01 uIU/mL (0.47-4.68)
== END ==
LOC: OD 10:23
PROVIDERS: ATTEND Physician Assistant
DX: E78.5 Hyperlipidemia, unspecified (principal)
CPT/HCPCS: 36415; 80053; 80061; 84439; 84443; 84480

== ENCOUNTER → 2020-03-08 | Outpatient (CLI) | payer OTHER ==
[2020-03-08 12:40] LABS: FREE T4 (FREE THYROXINE) 0.66 ng/dL (0.78-2.19)
[2020-03-08 12:54] LABS: THYROID STIMULATING HORMONE 0.13 uIU/mL (0.47-4.68)
== END ==
LOC: OD 10:39
PROVIDERS: ATTEND Physician Assistant
DX: E03.9 Hypothyroidism, unspecified (principal)
CPT/HCPCS: 36415; 84439; 84443; 84480

== ENCOUNTER → 2020-04-26 | Outpatient (CLI) | payer OTHER ==
[2020-04-26 12:27] LABS: ALBUMIN 4.1 g/dL (3.5-5.0); ALKALINE PHOSPHATASE 94 U/L (38-126); ANION GAP 10 (5-19); ASPARTATE AMINO TRANSFERASE 31 U/L (14-36); BILIRUBIN,DIRECT 0.3 mg/dL (0.0-0.4); BILIRUBIN,TOTAL 0.7 mg/dL (0.2-1.3); BLOOD UREA NITROGEN 18 mg/dL (7-20); CALCIUM 9.9 mg/dL (8.4-10.2); CARBON DIOXIDE 23 mmol/L (22-30); CHLORIDE 110 mmol/L (98-107); GLUCOSE 99 mg/dL (75-110); POTASSIUM 4.3 mmol/L (3.6-5.0)
[2020-04-26 12:43] LABS: FREE T4 (FREE THYROXINE) 0.36 ng/dL (0.78-2.19)
[2020-04-26 12:57] LABS: THYROID STIMULATING HORMONE 0.1 uIU/mL (0.47-4.68)
--- OUTSIDE RECORDS SUMMARY | 2020-04-29 10:17 | XMS REPORT ---
:1965 Author Organization [facility] Address [facility] [address] [place] [address] Care Team Providers Name Role Phone Yoan PICKETT Attending Clinician Unavailable BOYTE Attending Clinician Unavailable Allergies, Adverse Reactions, Alerts Allergy Name Allergy Status Severity Reaction(s) Onset Inactive Treat ing Comments Type Date Date Clinician Keflex Allergy to Active substance [place] Allergy to Active substance Papaya Allergy to Active substance Statins-hmg- Allergy to Active Arthralgia coa substance (joint pain) Reductase Inhibitors Medications Ordered Filled Start Stop Current Ordering Indication Dosage Frequency Signature Comments Components Medication Medication Date Date Medication? Clinician (SIG) Name Name Tamsulosin 2019-0 Yes Mingo Milton 1 QD Tamsulosi n HCl - 0.4 6-26 HCl - 0.4 MG Oral 00:00: MG Oral Capsule 00 Capsule TAKE 1 CAPSULE DAILY Quantity: 14 Refills: 1 Mingo Milton MD Start : 0Active Pantoprazol 2019-0 Yes 0 Pantoprazo e Sodium 40 5-21 le Sodium MG Oral 00:00: 40 MG Oral Tablet 00 Tablet Delayed Delayed Release Release TAKE 1 TABLET BY MOUTH TWICE DAILY BEFORE MEAL(S) Quantity: 60 Refills: 0 ,,, Start : 0Active metFORMIN 2018-0 No metFORMIN HCl ER 500 8-20 HCl ER 500 MG Oral 00:00: MG Oral Tablet 00 Tablet Extended Extended Release 24 Release 24 Hour Hour TAKE 2 TABLETS BY MOUTH TWICE DAILY Quantity: 360 Refills: 0 Start : 9Active Liothyronin No Liothyroni e Sodium ne Sodium TABS TABS Refills: 0 Active Nature-Thro No Nature-Thr id 65 MG oid 65 MG Oral Tablet Oral Tablet Refills: 0 Active Eleanor Yes 0 Eleanor Allergy 180 Allergy MG Oral 180 MG Tablet Oral Tablet Refills: 0 ,,, Active Fenofibrate Yes 0 Fenofibrat 48 MG Oral e 48 MG Tablet Oral Tablet Refills: 0 ,,, Active Vitamin D Yes 0 Vitamin D TABS TABS Refills: 0 ,,, Active Fish Oil Yes 0 Fish Oil CAPS CAPS Refills: 0 ,,, Active Topamax 50 Yes 0 Topamax 50 MG Oral MG Oral Tablet Tablet Refills: 0 ,,, Active Estradiol Yes 0 Estradiol 0.5 MG Oral 0.5 MG Tablet Oral Tablet Refills: 0 ,,, Active Ozempic Yes 0 Ozempic (0.25 or (0.25 or 0.5 0.5 MG/DOSE) MG/DOSE) SOPN SOPN ONCE WEEKLY Refills: 0 ,,, Active 1.5 ML Pen [place] Yes 0 1 QD [place] Thyroid 60 Thyroid 60 MG Oral MG Oral Tablet Tablet TAKE 1 TABLET DAILY. Refills: 0 ,,, Active Cytomel 25 Yes 0 1 QD Cytomel 25 MCG Oral MCG Oral Tablet Tablet TAKE 1 TABLET DAILY. Refills: 0 ,,, Active ammonium No ammonium lactate 12 lactate 12 % topical % topical cream APPLY cream CREAM APPLY TOPICALLY CREAM TO AFFECTED TOPICALLY AREA TWICE TO DAILY FOR AFFECTED ROUGHNESS AREA TWICE OF THE SKIN DAILY FOR ROUGHNESS OF THE SKIN fenofibrate No fenofibrat nanocrystal e lized 48 mg nanocrysta tablet TAKE llized 48 1 TABLET BY mg tablet MOUTH ONCE TAKE 1 DAILY TABLET BY MOUTH ONCE DAILY hydrocodone No hydrocodon 5 e 5 mg-acetamin mg-acetami ophen 325 nophen 325 mg tablet mg tablet TAKE 1 TAKE 1 TABLET BY TABLET BY MOUTH THREE MOUTH TIMES DAILY THREE NEEDED TIMES FOR SEVERE DAILY PAIN NEEDED FOR SEVERE PAIN ketorolac No ketorolac 10 mg 10 mg tablet TAKE tablet 1 TABLET BY TAKE 1 MOUTH EVERY TABLET BY 6 HOURS MOUTH NEEDED FOR EVERY 6 PAIN HOURS NEEDED FOR PAIN metformin No metformin ER 500 mg ER 500 mg tablet,exte tablet,ext nded ended release 24 release 24 hr TAKE 2 hr TAKE 2 TABLETS BY TABLETS BY MOUTH TWICE MOUTH DAILY TWICE DAILY ondansetron No ondansetro 4 mg n 4 mg disintegrat disintegra ing tablet ting DISSOLVE 1 tablet TABLET IN DISSOLVE 1 MOUTH EVERY TABLET IN 4 HOURS MOUTH NEEDED EVERY 4 HOURS NEEDED tamsulosin No tamsulosin 0.4 mg 0.4 mg capsule capsule TAKE 1 TAKE 1 CAPSULE BY CAPSULE BY MOUTH ONCE MOUTH ONCE DAILY DAILY topiramate No topiramate 50 mg 50 mg tablet TAKE tablet 1 TABLET BY TAKE 1 MOUTH ONCE TABLET BY DAILY MOUTH ONCE DAILY trazodone No trazodone 50 mg 50 mg tablet TAKE tablet UP TO 3 TAKE UP TO TABLETS BY 3 TABLETS MOUTH EVERY BY MOUTH DAY AT EVERY DAY BEDTIME AT BEDTIME NEEDED FOR NEEDED SLEEP FOR SLEEP albuterol No 2puff(s Q4H albuterol sulf 90 ) sulf 90 mcg/actuati mcg/actuat on breath ion breath activated activated powder powder inhaler,sen inhaler,se sor Inhale nsor 2 puffs Inhale 2 every 4 puffs hours by every 4 inhalation hours by route. inhalation route. Eleanor No 1 Q1D Eleanor Allergy 180 Allergy mg tablet 180 mg Take 1 tablet tablet Take 1 every day tablet by oral every day route. by oral route. [place] No 1 Q1D [place] Thyroid 60 Thyroid 60 mg tablet mg tablet Take 1 Take 1 tablet tablet every day every day by oral by oral route. route. estradiol No 1 Q1D estradiol 0.5 mg 0.5 mg tablet Take tablet 1 tablet Take 1 every day tablet by oral every day route. by oral route. Flovent 44 No 2puff(s BID Flovent 44 mcg/actuati ) mcg/actuat on aerosol ion inhaler aerosol Inhale 2 inhaler puffs twice Inhale 2 a day by puffs inhalation twice a route. day by inhalation route. Ozempic No .5mg Q1W Ozempic 0.25 mg or 0.25 mg or 0.5 mg (2 0.5 mg (2 mg/1.5 mL) mg/1.5 mL) subcutaneou subcutaneo s pen us pen injector injector Inject 0.5 Inject 0.5 mg every mg every week by week by subcutaneou subcutaneo s route. us route. pantoprazol No 1 BID pantoprazo e 40 mg le 40 mg tablet,kilo tablet,del yed release ayed Take 1 release tablet Take 1 twice a day tablet by oral twice a route. day by oral route. Topamax 100 No 1 BID Topamax mg tablet 100 mg Take 1 tablet tablet Take 1 twice a day tablet by oral twice a route. day by oral route. tramadol 50 No 1 Q6H tramadol mg tablet 50 mg Take 1 tablet tablet Take 1 every 6 tablet hours by every 6 oral route hours by as needed. oral route as needed. Valium 5 mg No 1 Valium 5 tablet Take mg tablet 1 tablet by Take 1 oral route tablet by as oral route directed. as directed. Lidoderm 5 No Lidoderm 5 % topical % topical patch APPLY patch 1 PATCH BY APPLY 1 TOPICAL PATCH BY ROUTE ONCE TOPICAL DAILY (MAY ROUTE ONCE WEAR UP TO DAILY (AUGUST 12HOURS.) WEAR UP TO 12HOURS.) Voltaren 1 No Voltaren 1 % topical % topical gel APPLY 2 gel APPLY GRAMS TO 2 GRAMS TO THE THE AFFECTED AFFECTED AREA(S) BY AREA(S) BY TOPICAL TOPICAL ROUTE 4 ROUTE 4 TIMES PER TIMES PER DAY DAY [place] No 1 Q1D [place] Thyroid 90 Thyroid 90 mg tablet 1 mg tablet alternating 1 with 60mg alternatin every other g with day 60mg every other day Cytomel 25 No 1 Q1D Cytomel 25 mcg tablet mcg tablet Take 1 Take 1 tablet tablet every day every day by oral by oral route for route for 90 days. 90 days. Vitamin D3 No 1 Q1D Vitamin D3 125 mcg 125 mcg (5,000 (5,000 unit) unit) tablet Take tablet 1 tablet Take 1 every day tablet by oral every day route. by oral route. Alcohol No 1pad(s) Q1D Alcohol Prep Pads Prep Pads Apply 1 pad Apply 1 every day pad every by topical day by route. topical route. Problems Condition Condition Condition Status Onset Resolution Last Treatin g Comments Name Details Category Date Date Treatment Clinician Date Adhesive Adhesive Problem Active 2019-04 capsulitis Capsulitis 1-02 of left of Left 00:00: shoulder Shoulder 00 Muscle Muscle Problem Active 2019-04 weakness Weakness 0-13 00:00: 00 Poor Poor Problem Active 2019-04 posture Posture 0-13 00:00: 00 Pain of Pain of Problem Active 2019-04 left Left 0-13 shoulder Shoulder 00:00: joint Joint 00 Stiffness Stiffness Problem Active 2019-04 of left of Left 0-13 shoulder Shoulder 00:00: 00 Insulin Insulin Problem Active resistance Resistance 12-18 00:00: 00 Hypothyroid Hypothyroid Problem Active ism ism 12-18 00:00: 00 Hypercholes Hypercholes Problem Active terolemia terolemia 12-18 00:00: 00 Migraine Migraine Problem Active 12-18 00:00: 00 Dyslipidemi Dyslipidemi Problem Active a a 1-03 00:00: 00 Hypothyroid Hypothyroid Problem Active ism ism 11-30 00:00: 00 Abnormal Abnormal Problem Active liver Liver 11-30 function Function 00:00: 00 Impaired Impaired Problem Active glucose Glucose 11-30 tolerance Tolerance 00:00: 00 Calculus, Calculus, Problem Active bladder bladder Calculus of Calculus of Problem Active kidney kidney Calculus, Calculus, Problem Active ureter ureter Vitamin D Vitamin D Problem Active deficiency Deficiency Procedures Procedure Date / Time Performed Performing Clinician Devi e RADIOLOGIC EXAM SHOULDER 2 VIEWS 2019-12-19 00:00:00 MRI, shoulder, w/o contrast 2019-12-19 00:00:00 Urinalysis 2019-10-18 00:00:00 XR- KUB 1 View/ Abdomen 2019-09-28 00:00:00 US-Renal ULS Complete w/ Bladder 2019-09-28 00:00:00 Endoscopy 2019-04-04 00:00:00 Dermatology Surgery 2015-04-04 00:00:00 Oophorectomy 2009-06-02 00:00:00 Hernia Repair 2009-06-02 00:00:00 Total Hysterectomy 2009-06-02 00:00:00 Hysterectomy 2009-04-04 00:00:00 Tubal Ligation 2000-12-03 00:00:00 Bilateral Tubal Ligation 2000-04-04 00:00:00 REMOVAL OF OVARIAN CYST(S) 1996-04-04 00:00:00 Ovarian Cystectomy 1996-04-04 00:00:00 Extraction of [place] Tooth 1982-04-04 00:00:00 History of Renal lithotripsy History of Ovarian cystectomy History of Tubal ligation History of Hysterectomy History of Rectocele repair History of [place] tooth extraction History of Skin biopsy Results Test Description Test Time Test Comments Text Results Atomic Results Result Comments Urinalysis 2019-10-25 08:24:00 Test Item Value Reference Range Comments Urine Color (test code = Urine Color) Yellow Yellow Urine Clarity (test code = Urine Clarity) CLEAR Clear Urine Glucose (test code = Urine Glucose) NEGATIVE Negati ve Urine Ketones (test code = Urine Ketones) NEGATIVE Negati ve Urine Bilirubin (test code = Urine Bilirubin) NEGATIVE Ne gative Urine Specific [place] (test code = Urine Specific [place]) 1.02 0 1.010-1.030 Urine Blood (test code = Urine Blood) NEGATIVE Negative Urine pH (test code = Urine pH) 7.0 5.0-8.0 Urine Protein (test code = Urine Protein) NEGATIVE Negati ve Urine Urobilinogen (test code = Urine Urobilinogen) 0.2 Eu/dl 0.2 Urine Nitrites (test code = Urine Nitrites) NEGATIVE Nega tive Urine Leukocytes (test code = Urine Leukocytes) SMALL Negative microscopic: 6-10epis, 6-10wbc, many [id number] 15:04:00 Test Item Value Reference Range Comments Urine Color (test code = Urine Color) Lt. Yellow Yellow Urine Clarity (test code = Urine Clarity) Clear Clear Urine Glucose (test code = Urine Glucose) Negative Negati ve Urine Ketones (test code = Urine Ketones) Negative Negati ve Urine Bilirubin (test code = Urine Bilirubin) Negative Ne gative Urine Specific [place] (test code = Urine 1.025 1.010- 1.030 Specific [place]) Urine Blood (test code = Urine Blood) Negative Negative Urine pH (test code = Urine pH) 6.0 5.0-8.0 Urine Protein (test code = Urine Protein) Negative Negati ve Urine Urobilinogen (test code = Urine 0.2 Eu/dl 0.2 Urobilinogen) Urine Nitrites (test code = Urine Nitrites) Negative Nega tive Urine Leukocytes (test code = Urine Leukocytes) Trace Negative microscopic: mod bact, 3-5wbc, 0-2episSURGICAL PATH [id number] 00:00:00 Test Item Value Reference Range Comments Clinical History (test code = Dysphagia Polyps (3 mm to 5 55003-9) mm) in the stomach body. (Biopsy) Erythema, edema in the lower third of the esophagus. (Biopsy) Nature of Specimen (test code Specimen Source:Stomach- Body, = 28690-5) Specimen Obtained Gross Pathology (test code = Received in a specimen [id number]) container labeled with the patient's name and "stomach body polyp" is/are 2 pieces of teresa-pink tissue measuring 1 mm. The specimen is submitted entirely. Microscopic Pathology (test code = 70956-7) Final Diagnosis (test code = Stomach- Body;CHRONIC INACTIVE 87351-8) GASTRITIS. Negative for Helicobacter pylori organisms on IP stain.Diagnosis Note: SURGICAL PATH [id number] 00:00:00 Test Item Value Reference Range Comments Clinical History (test code = Dysphagia Polyps (3 mm to 5 96465-6) mm) in the stomach body. (Biopsy) Erythema, edema in the lower third of the esophagus. (Biopsy) Nature of Specimen (test code = Specimen Source:Esophagus- 78691-1) Distal, Specimen Obtained Gross Pathology (test code = Received in a specimen [id number]) container labeled with the patient's name and "distal esophagus biopsy" is/are 1 pieces of teresa-pink tissue measuring 2 mm. The specimen is submitted entirely. Microscopic Pathology (test code = 39814-6) Final Diagnosis (test code = Esophagus- 83949-6) Distal;GASTRIC-TYPE MUCOSA WITH CHRONIC INFLAMMATION. No squamous mucosa seen. Negative for intestinal metaplasia.Diagnosis Note: SURGICAL PATH [id number] 00:00:00 Test Item Value Reference Range Comments Clinical History (test code Dysphagia Polyps (3 mm to 5 mm) = 36863-8) in the stomach body. (Biopsy) Erythema, edema in the lower third of the esophagus. (Biopsy) Nature of Specimen (test Specimen Source:Esophagus- Mid, code = 27024-0) Specimen Obtained Gross Pathology (test code Received in a specimen container = 78426-2) labeled with the patient's name and "mid esophagus biopsy" is/are 1 pieces of teresa-pink tissue measuring 1 mm. The specimen is submitted entirely. Microscopic Pathology (test code = 85892-3) Final Diagnosis (test code Esophagus- Mid;ESOPHAGITIS WITH = 32309-6) INCREASED EOSINOPHILS. Intraepithelial eosinophils (30/high power field), This pattern is somewhat non-specific and could represent eosinophilic esophagitis, reflux esophagitis, or other forms of esophageal injury. Ab/pas stain negative for intestinalization and negative for fungal organisms.Diagnosis Note: Hemoglobin A1c/Hemoglobin.total in [id number] 10:00:00 Test Item Value Reference Range Comments Hemoglobin A1c/Hemoglobin.total in Blood (test code = 6.1 4548-4) Assessments Condition Name Status Diagnosis Date Treating Clinici an Pain of left shoulder joint Active 2020-04-24 10:23:46 Stiffness of left shoulder Active 2020-04-24 10:23:46 Muscle weakness Active 2020-04-24 10:23:46 Poor posture Active 2020-04-24 10:23:46 Pain of left shoulder joint Active 2020-04-18 09:47:42 Stiffness of left shoulder Active 2020-04-18 09:47:42 Muscle weakness Active 2020-04-18 09:47:42 Poor posture Active 2020-04-18 09:47:42 Pain of left shoulder joint Active 2020-04-15 08:42:01 Stiffness of left shoulder Active 2020-04-15 08:42:01 Muscle weakness Active 2020-04-15 08:42:01 Poor posture Active 2020-04-15 08:42:01 Pain of left shoulder joint Active 2020-04-08 18:12:45 Stiffness of left shoulder Active 2020-04-08 18:12:45 Muscle weakness Active 2020-04-08 18:12:45 Poor posture Active 2020-04-08 18:12:45 Pain of left shoulder joint Active 2020-03-21 12:07:56 Stiffness of left shoulder Active 2020-03-21 12:07:56 Muscle weakness Active 2020-03-21 12:07:56 Poor posture Active 2020-03-21 12:07:56 Pain of left shoulder joint Active 2020-03-19 11:31:03 Stiffness of left shoulder Active 2020-03-19 11:31:03 Muscle weakness Active 2020-03-19 11:31:03 Poor posture Active 2020-03-19 11:31:03 Pain of left shoulder joint Active 2020-03-13 18:06:10 Stiffness of left shoulder Active 2020-03-13 18:06:10 Muscle weakness Active 2020-03-13 18:06:10 Poor posture Active 2020-03-13 18:06:10 Pain of left shoulder joint Active 2020-03-12 12:19:39 Stiffness of left shoulder Active 2020-03-12 12:19:39 Muscle weakness Active 2020-03-12 12:19:39 Poor posture Active 2020-03-12 12:19:39 Pain of left shoulder joint Active 2020-03-07 14:54:08 Stiffness of left shoulder Active 2020-03-07 14:54:08 Muscle weakness Active 2020-03-07 14:54:08 Poor posture Active 2020-03-07 14:54:08 Pain of left shoulder joint Active 2020-03-04 19:21:46 Stiffness of left shoulder Active 2020-03-04 19:21:46 Muscle weakness Active 2020-03-04 19:21:46 Poor posture Active 2020-03-04 19:21:46 Pain of left shoulder joint Active 2020-02-26 18:56:30 Stiffness of left shoulder Active 2020-02-26 18:56:30 Poor posture Active 2020-02-26 18:56:30 Muscle weakness Active 2020-02-26 18:56:30 Pain of left shoulder joint Active 2020-02-04 10:19:15 Adhesive capsulitis of left shoulder Active 2020-02-04 10:19:21 Pain of left shoulder joint Active 2020-02-19 19:19:26 Stiffness of left shoulder Active 2020-02-19 19:19:26 Poor posture Active 2020-02-19 19:19:26 Muscle weakness Active 2020-02-19 19:19:26 Pain of left shoulder joint Active 2020-02-15 12:00:53 Stiffness of left shoulder Active 2020-02-15 12:00:53 Poor posture Active 2020-02-15 12:00:53 Muscle weakness Active 2020-02-15 12:00:53 Pain of left shoulder joint Active 2020-02-13 09:21:21 Stiffness of left shoulder Active 2020-02-13 09:21:21 Poor posture Active 2020-02-13 09:21:21 Muscle weakness Active 2020-02-13 09:21:21 Pain of left shoulder joint Active 2020-02-06 15:28:43 Stiffness of left shoulder Active 2020-02-06 15:28:43 Poor posture Active 2020-02-06 15:28:43 Muscle weakness Active 2020-02-06 15:28:43 Pain of left shoulder joint Active 2020-02-05 17:28:38 Stiffness of left shoulder Active 2020-02-05 17:28:38 Poor posture Active 2020-02-05 17:28:38 Muscle weakness Active 2020-02-05 17:28:38 Pain of left shoulder joint Active 2020-01-31 12:55:28 Stiffness of left shoulder Active 2020-01-31 12:55:28 Poor posture Active 2020-01-31 12:55:28 Muscle weakness Active 2020-01-31 12:55:28 Pain of left shoulder joint Active 2020-01-22 18:07:30 Stiffness of left shoulder Active 2020-01-22 18:07:30 Poor posture Active 2020-01-22 18:07:30 Muscle weakness Active 2020-01-22 18:07:30 Pain of left shoulder joint Active 2020-01-16 12:20:04 Stiffness of left shoulder Active 2020-01-16 12:20:22 Muscle weakness Active 2020-01-16 12:20:36 Poor posture Active 2020-01-16 12:20:57 Adhesive capsulitis of left shoulder Active 2020-01-09 16:21:51 Pain of left shoulder joint Active 2019-12-19 12:24:50 Tear of left rotator cuff Active 2019-12-19 16:49:47 Hypothyroidism Active 2019-10-16 15:50:12 Impaired glucose tolerance Active 2019-10-16 15:50:12 Body mass index 40+ - severely obese Active 2019-10-19 15:50:06 Hypothermia not associated with low Active 2019-10-19 1 6:59:39 environmental temperature Hypothyroidism Active 2019-02-14 12:58:28 Impaired glucose tolerance Active 2019-02-14 12:58:28 Abnormal liver function Active 2019-04-06 16:58:18 Hypothyroidism Active 2018-08-04 08:40:06 Impaired glucose tolerance Active 2018-08-04 08:40:07 Body mass index 40+ - severely obese Active 2018-08-04 08:46:22 Encounters Start End Encounter Admission Attending Care Care Encounter Date/Time Date/Time Type Type Clinicians Facility Department ID 2020-04-23 2020-04-23 Yao Duarte [id number] 21 00:00:00 00:00:00 [facility] DPT: [address] [place] [address], Ph. 2020-04-17 2020-04-17 Yao Duarte [id number] 21 00:00:00 00:00:00 [facility] DPT: [address] [place] [address], Ph. 2020-04-14 2020-04-14 Yao Duarte [id number] 21 00:00:00 00:00:00 [facility] DPT: [address], [place] [address], Ph. 2020-04-08 2020-04-08 Yao Tolstoy Tolstoy [id number] 21 00:00:00 00:00:00 [facility] DPT: [address], [place] [address], Ph. 2020-03-20 2020-03-20 Yao Vivaseret [id number] 20 00:00:00 00:00:00 [facility] DPT: [address], [place] [address], Ph. 2020-03-18 2020-03-18 Yao Vivaseret [id number] 20 00:00:00 00:00:00 [facility] DPT: [address], [place] [address], Ph. 2020-03-13 2020-03-13 Yao Vivaseret [id number] 20 00:00:00 00:00:00 [facility] DPT: [address], [place] [address], Ph. 2020-03-11 2020-03-11 Yao Vivaseret [id number] 20 00:00:00 00:00:00 [facility] DPT: [address], [place] [address], Ph. 2020-03-06 2020-03-06 Yao Vivaseret [id number] 20 00:00:00 00:00:00 [facility] DPT: [address], [place] [address], Ph. 2020-03-04 2020-03-04 Yao Vivaseret [id number] 20 00:00:00 00:00:00 [facility] DPT: [address], [place] [address], Ph. 2020-02-26 2020-02-26 Yao Vivaseret [id number] 20 00:00:00 00:00:00 [facility] DPT: [address], [place] [address], Ph. 2020-02-20 2020-02-20 Vadim Duarte Tolstoy [id number] 20 00:00:00 00:00:00 [facility] 1118 Arredondo, DO: Domenico Acuña [address], [address], [place] [address], Ph. 2020-02-19 2020-02-19 Yao Vivaseret [id number] 20 00:00:00 00:00:00 [facility]7 [facility] DPT: [address], [place] [address], Ph. 2020-02-14 2020-02-14 Yao Duarte Tolstoy [id number] 20 00:00:00 00:00:00 [facility] 1112 [facility] DPT: [address], [place] [address], Ph. 2020-02-12 2020-02-12 Yao Duarte Tolstoy 53544_20 20 00:00:00 00:00:00 [facility] DPT: [address], [place] [address], Ph. 2020-02-07 2020-02-07 Yao Vivaseret [id number]_20 20 00:00:00 00:00:00 [facility] DPT: [address], [place] [address], Ph. 2020-02-05 2020-02-05 Yao Vivaseret 53544_20 20 00:00:00 00:00:00 [facility] DPT: [address], [place] [address], Ph. 2020-01-31 2020-01-31 Yao Vivaseregrace VivasTolstoy 53544_20 20 00:00:00 00:00:00 [facility] DPT: [address], [place] [address], Ph. 2020-01-22 2020-01-22 Yao Vivaseret [id number]_20 20 00:00:00 00:00:00 [facility] 1020 [facility] DPT: [address], [place] [address], Ph. 2020-01-15 2020-01-15 Yao Tolstoy Tolstoy 53544_20 20 00:00:00 00:00:00 [facility] 1013 [facility] DPT: [address], [place] [address], Ph. 2020-01-09 2020-01-09 Vadim Odellt Tolstoy 53544_20 20 00:00:00 00:00:00 [facility] 1007 Arredondo, DO: [facility] [address] [place] [address], [address], [place] [address], Ph. 2019-12-19 2019-12-19 Vadim Tolstoy Tolstoy [id number]_20 20 00:00:00 00:00:00 [facility] 0916 Arnulfo, DO: [facility] [address] [place] [address] Road, [address], [place] [address], Ph. 2019-10-25 2019-10-25 Appointment Mingo Milton [facility] [id number] 15:30:00 15:30:00 ; Mingo Milton MD 2019-10-19 2019-10-19 Alyson Vivaseret [id number] _[id number] 00:00:00 00:00:00 [facility] [id number] PA-C: [id number] [facility], [facility], [place] [address], Ph. 2019-09-28 2019-09-28 [facility] 30 [id number] 14:00:00 14:00:00 ; Mingo Milton MD 2019-04-06 2019-04-06 Alyson Duarte [id number] _[id number] 00:00:00 00:00:00 [facility] [address] PA-C: [id number] [employer], [facility], [place] [address], Ph. 2018-08-04 2018-08-04 Alyson Duarte Tolstoy [id number] _[id number] 00:00:00 00:00:00 [facility] [address] PA-C: [id number] [employer], [facility] Group, [place] [address], Ph. 2016-12-03 2016-12-03 Outpatient [facility] [id number] 18:10:00 18:10:00 ALYSON 2016-08-24 2016-08-24 Outpatient [facility] [id number] 16:33:00 16:33:00 ALYSON 15 Family History Family Member Diagnosis Comments Start Date Stop Date Grandmother Family history of malignant neoplasm of urinary bladder Grandmother Family history of breast cancer Grandmother Family history of malignant neoplasm of ovary Grandfather Family history of type 2 diabetes mellitus Mother Family history of hyperthyroidism Mother Family history of stroke Father Family history of hypothyroidism Immunizations Ordered Immunization Filled Immunization Date Status Commen ts Refusal Reason Name Name influenza, 2019-01-08 Completed injectable, 00:00:00 quadrivalent influenza, 2018-01-02 Completed injectable, 00:00:00 quadrivalent influenza, 2017-01-02 Completed injectable, 00:00:00 quadrivalent influenza, 2016-01-03 Completed injectable, 00:00:00 quadrivalent Payers Payer Name Policy Type Policy Number Effective Date Expiration D ate Plan of Treatment Planned Activity Planned Date Details Comments Future Appointment 2020-05-21 15:50:00 Vadim Arredondo, [address]; [address], [place] [address] Future Appointment 2020-05-02 15:20:00 Alyson Stewart, [address]; [address], [place] [address] Future Appointment 2020-04-30 17:00:00 Yao Saldivar, [address]; , [place] [address] Social History Smoking Status Start Date Stop Date Never Smoker Vital Signs Vital Name Observation Time Observation Value Comments Height 2020-02-20 00:00:00 64 [in_i] BMI (Body Mass Index) 2020-02-20 00:00:00 39.5 kg/m2 Body Weight 2020-02-20 00:00:00 230 [lb_av] Height 2020-01-09 00:00:00 64 [in_i] Height 2019-12-19 00:00:00 64 [in_i] BMI (Body Mass Index) 2019-12-19 00:00:00 39.8 kg/m2 Body Weight 2019-12-19 00:00:00 232 [lb_av] Height 2019-10-19 00:00:00 65 [in_i] BMI (Body Mass Index) 2019-10-19 00:00:00 41.2 kg/m2 BP Systolic 2019-10-19 00:00:00 126 mm[Hg] Body Weight 2019-10-19 00:00:00 247.4 [lb_av] BP Diastolic 2019-10-19 00:00:00 73 mm[Hg] BP Diastolic 2019-04-06 00:00:00 85 mm[Hg] Height 2019-04-06 00:00:00 65 [in_i] BMI (Body Mass Index) 2019-04-06 00:00:00 40.6 kg/m2 BP Systolic 2019-04-06 00:00:00 126 mm[Hg] Body Weight 2019-04-06 00:00:00 244.1 [lb_av] BP Diastolic 2018-08-04 00:00:00 72 mm[Hg] Height 2018-08-04 00:00:00 65 [in_i] BMI (Body Mass Index) 2018-08-04 00:00:00 40.1 kg/m2 BP Systolic 2018-08-04 00:00:00 135 mm[Hg] Body Weight 2018-08-04 00:00:00 240.7 [lb_av] Systolic blood pressure 2019-10-25 15:28:00 112 mm[Hg] Diastolic blood pressure 2019-10-25 15:28:00 78 mm[Hg] Systolic blood pressure 2019-09-28 13:55:00 122 mm[Hg] Loca tion: RUE; Position: Sittin g Diastolic blood pressure 2019-09-28 13:55:00 76 mm[Hg] Loc ation: RUE; Position: Sittin g Body height 2019-09-28 13:55:00 65 [in_us] Weight 2019-09-28 13:55:00 245 [lb_av] Body mass index (BMI) 2019-09-28 13:55:00 40.77 kg/m2 [Ratio] Hospital Discharge Instructions 1. Pain of left shoulder joint XR, shoulder 2. Tear of left rotator cuff MRI, shoulder, w/o contrast - Please call patient to schedule appt Valium 5 mg tablet tramadol 50 mg tablet Discussion Note: None recorded. Patient educational handouts: No information available.NameDatesDetailsInstructions not documented1. Hypothyroidism [place] Thyroid 60 mg tablet Cytomel 25 mcg tablet 2. Impaired glucose tolerance Ozempic 0.25 mg or 0.5 mg (2 mg/1.5 mL) subcutaneous pen injector Alcohol Prep Pads 3. Body mass index 40+ - severely obese 4. Hypothermia not associated with low environmental temperature Discussion Note: None recorded. Patient educational handouts: No information available.NameDatesDetailsInstructions not documented1. Hypothyroidism Cytomel 25 mcg tablet 2. Impaired glucose tolerance 3. Abnormal liver function Discussion Note: None recorded. Patient educational handouts: No information available.1. Hypothyroidism [place] Thyroid 90 mg tablet [place] Thyroid 90 mg tablet Cytomel 25 mcgtablet 2. Impaired glucose tolerance metformin ER 500 mg tablet,extended release 24 hr 3. Body mass index 40+ - severely obese eating healthy foods: care instructions Discussion Note: None recorded.
== END ==
LOC: OD 10:29
PROVIDERS: ATTEND Physician Assistant
DX: R73.02 Impaired glucose tolerance (oral) (principal); E55.9 Vitamin D deficiency, unspecified; E03.9 Hypothyroidism, unspecified
CPT/HCPCS: 36415; 80053; 82306; 83036; 84439; 84443; 84480